=== PATIENT | female | born 1970 | race Caucasian/White ===

== ENCOUNTER 2021-02-21 12:11 | Emergency (ER) | payer MEDICAID ==
[~2021-02-21] VITALS: Ht 154.9 cm; Wt 63.6 kg
[~2021-02-21 12:11] MED LIST: CYCL-1 PO
[2021-02-21 13:03] VITALS: BP 181/102
[2021-02-21 13:49] LABS: BASOPHILS % (AUTO) 0.3 % (0-1); EOSINOPHILS # (AUTO) 0.1 X10'3 (0-0.9); EOSINOPHILS % (AUTO) 1.1 % (0-6); HEMATOCRIT 40.4 % (35.0-45.0); HEMOGLOBIN 13.8 g/dl (12.0-16.0); LYMPHOCYTES # (AUTO) 1.1 X10'3 (1.1-4.8); LYMPHOCYTES % (AUTO) 18.6 % (21-51); MEAN CORPUSCULAR HEMOGLOBIN 30.1 PG (27.0-31.0); MEAN CORPUSCULAR HGB CONC 34.3 g/dL (33.0-36.5); MEAN CORPUSCULAR VOLUME 87.8 FL (78-98); MEAN PLATELET VOLUME 7.6 FL (7.4-10.4); MONOCYTES # (AUTO) 0.6 X10'3 (0-0.9); MONOCYTES % (AUTO) 10.8 % (2-12); NEUTROPHILS # (AUTO) 4.1 X10'3 (1.8-7.7); NEUTROPHILS % (AUTO) 69.2 % (42-75); PLATELET COUNT 247 X10'3 (140-440); RED CELL DISTRIBUTION WIDTH 13.9 % (11.5-14.5)
[2021-02-21 14:04] LABS: ALANINE AMINOTRANSFERASE 35 U/L (12-78); ALBUMIN 3.7 G/DL (3.4-5.0); ALBUMIN/GLOBULIN RATIO 0.9 (1.1-1.5); ALKALINE PHOSPHATASE 100 IU/L (46-116); ANION GAP 10 (8-16); ASPARTATE AMINO TRANSFERASE 29 U/L (10-37); BILIRUBIN,TOTAL 0.9 MG/DL (0.1-1.0); BLOOD UREA NITROGEN 12 MG/DL (7-18); BUN/CREATININE RATIO 11.9 (6.6-38.0); CALCIUM 8.8 MG/DL (8.5-10.1); CHLORIDE 102 MMOL/L (99-107); CREATININE 1.01 MG/DL (0.40-0.90); GLUCOSE 124 MG/DL (70-104); POTASSIUM 3.6 MMOL/L (3.5-5.1); SODIUM 140 MMOL/L (135-145); TOTAL CARBON DIOXIDE 28.3 MMOL/L (24-32); TOTAL PROTEIN 7.8 G/DL (6.4-8.2); eGFR 58 ML/MIN
[2021-02-21 15:07] LABS: CLARITY,URINE SLIGHTLY CLOUDY (Clear); COLOR,URINE YELLOW (Yellow); GLUCOSE, URINE NEGATIVE (Neg); KETONES,URINE TRACE mg/dl (Neg); LEUKOCYTE ESTERASE ,URINE NEGATIVE (Neg); NITRITES, URINE NEGATIVE (Neg); OCCULT BLOOD,URINE MODERATE (Neg); PROTEIN,URINE NEGATIVE (Neg); UROBILINOGEN,URINE 0.2 E.U/dL (0.2-1.0)
[2021-02-21 15:10] LABS: UA COLLECTION TYPE CLN CATCH MIDSTREAM
[2021-02-21 15:13] LABS: BACTERIA,URINE 1+ /HPF (Neg); MUCUS STRANDS MANY /LPF (Neg); SQUAMOUS EPITHELIAL CELL,UR MANY /LPF (FEW); WBC,URINE 0-4 /HPF (0-4); YEAST FEW /HPF (NEGATIVE)
[2021-02-21] MEDS ORDERED: FLUC150T5 PO (15:54)
== END 2021-02-21 16:04 | disposition home or self-care (01) ==
LOC: ER 12:13
DX: R10.33 Periumbilical pain (principal); R30.9 Painful micturition, unspecified; L29.8 Other pruritus; Z90.710 Acquired absence of both cervix and uterus; Z79.899 Other long term (current) drug therapy
CPT/HCPCS: 36415; 74176; 80053; 81001; 85025; 99284

== ENCOUNTER 2025-02-19 08:37 | Day surgery (SDC) | payer MEDICAID ==
[~2025-02-19] VITALS: Ht 160 cm; Wt 76.3 kg
[2025-02-19] VITALS (7 sets, daily range): BP systolic 107–136; BP diastolic 60–81; PULSE 53–70; RESP 16–20; O2SAT 93–100
[~2025-02-19 08:37] MED LIST changes: +AMLO5TAB16 PO; +ATOR40TA71 PO; -CYCL-1 PO; +ESOM40CA PO; +LORA10TA7 PO; +LOSA1TAB39 PO; +ringers solution, lacted 1,000 ML IV SCH
[2025-02-19] MEDS ORDERED: midazolam 1 mg/ML 2ml injection ONE (12:28)
[2025-02-19] MEDS ORDERED: fentaNYL/PF 50MCG/1 ML 2ML syringe ONE (12:28)
[2025-02-19] MEDS ORDERED: LIDOcaine 2% (20mg/ml) 5ml vial ONE (12:41)
--- NOTE | 2025-02-20 14:32 | PATHOLOGY REPORT ---
[facility] [address] [place] [address] SURGICAL PATHOLOGY REPORT CaseNumber: [id number] Surgeon:Sahil Menjivar M.D. CLINICAL INFORMATION CLINICAL INFORMATION: GERD. DIAGNOSIS DIAGNOSIS: GASTRIC ANTRUM, BIOPSY - SLIGHT STROMAL CHRONIC INFLAMMATION AND REACTIVE CHANGES - AREAS OF INTESTINAL METAPLASIA BY ALCIAN BLUE STAINING - NO DYSPLASTIC OR NEOPLASTIC FEATURES - NO H. PYLORI ORGANISMS BY IMMUNOHISTOCHEMISTRY MICROSCOPIC DESCRIPTION MICROSCOPIC DESCRIPTION: Reviewed is a single H&E-stained slide showing sections and levels of a fragment of gastric antral-type mucosa. Within the stroma, chronic inflammatory cells are slightly increased in number and are associated with goblet cell-type intestinal metaplasia, highlighted by Alcian blue staining. Very mild reactive changes are also noted. However, no dysplastic or neoplastic features are identified. Also, no H. pylori organisms are highlighted by immunohistochemistry. GROSS DESCRIPTION GROSS DESCRIPTION: Received in a container of formalin labeled with the patient's name, number, and "antrum BX" is a 0.6 x 0.1 x 0.1 cm piece of falcon tissue. The specimen is entirely submitted as A1. The time at which the specimen was removed was 1239. The time at which the specimen was placed in formalin was 1240. Electronically signed by: Chip Figueroa M.D. 02/20/2025 1:53:00 PM
== END 2025-02-19 13:34 | disposition home or self-care (01) ==
LOC: PAS 08:37
PROVIDERS: ATTEND Internal Medicine Gastroenterology
DX: R12 Heartburn (principal); K29.70 Gastritis, unspecified, without bleeding; K21.9 Gastro-esophageal reflux disease without esophagitis; K25.9 Gastric ulcer, unspecified as acute or chronic, without hemorrhage or perforation; K31.89 Other diseases of stomach and duodenum; E66.9 Obesity, unspecified; I10 Essential (primary) hypertension; Z68.28 Body mass index [BMI] 28.0-28.9, adult
CPT/HCPCS: 43239; J2003; J2250; J3010; J7120; Z7512; A4615